=== PATIENT | female | born 1995 | race African-American/Black ===

== ENCOUNTER 2024-12-16 16:36 | Emergency (ER) | payer SELFPAY ==
[2024-12-16 16:38] VITALS: BP 123/78
[2024-12-16] MEDS: ROXICODONE 5 MG PO (18:32)
[2024-12-16] MEDS: MOTRIN 600 MG PO (18:32)
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
== END 2024-12-16 19:02 | disposition home or self-care (01) ==
LOC: EMR 16:36
PROVIDERS: EMERGENCY PHYSICIAN Emergency Medicine
DX: M54.9 Dorsalgia, unspecified (principal); M25.561 Pain in right knee; M25.562 Pain in left knee; J45.909 Unspecified asthma, uncomplicated; K58.9 Irritable bowel syndrome, unspecified; V43.52XA Car driver injured in collision with other type car in traffic accident, initial encounter; Y92.410 Unspecified street and highway as the place of occurrence of the external cause
CPT/HCPCS: 99284; 70450; 72110; 72125; 73564